=== PATIENT | female | born 1945 | race Caucasian/White ===

== ENCOUNTER → 2017-02-06 | Outpatient (CLI) | payer MEDICARE, BC ==
[~2017-02-06] MED LIST: ASPI81CH37 CHEW; ATEN100T PO; COMMODE 3-IN-11 MIS; DICL75TA PO; ENOX40P SQ; HYDR-3288 PO; HYDR12.56 PO; HYDR12.57 PO; LETR2.5T PO; LISI-515 PO; METO50TA PO; VENL75CA44 PO; VENL75TA PO; WALKER WHEELS/F1 MIS; WHEA1POW9 PO
[2017-02-06 10:26] LABS: AUTOMATED NEUTROPHIL # 5.2 TH/MM3 (1.8-7.7); BASOPHIL % 0.5 % (0.0-2.0); EOSINOPHIL # 0.3 TH/MM3 (0-0.4); EOSINOPHIL % 3.8 % (0.0-4.0); HEMATOCRIT 36.6 % (35.0-46.0); HEMO FLAGS DIFF FINAL; LYMPH % 12.1 % (9.0-44.0); LYMPHOCYTE # 0.8 TH/MM3 (1.0-4.8); MEAN CELL VOLUME 87.1 FL (80.0-100.0); MEAN CORPUSCULAR HEMOGLOBIN 27.9 PG (27.0-34.0); MEAN CORPUSCULAR HGB CONC 32.1 % (32.0-36.0); MONO % 5.4 % (0.0-8.0); NEUT % 78.2 % (16.0-70.0); PLATELET COUNT 179 TH/MM3 (150-450); RED CELL DISTRIBUTION WIDTH 13.8 % (11.6-17.2); WHITE BLOOD COUNT 6.7 TH/MM3 (4.0-11.0)
[2017-02-06 10:35] LABS: APTT (PATIENT) 25.7 SEC (24.3-30.1); PROTHROMBIN TIME - PATIENT 10.6 SEC (9.8-11.6)
[2017-02-06 10:48] LABS: ALT (GPT) 18 U/L (10-53); ANION GAP 6 MEQ/L (5-15); AST (GOT) 11 U/L (15-37); BICARBONATE 27.1 MEQ/L (21.0-32.0); CHLORIDE 105 MEQ/L (98-107); GLOMERULAR FILTRATION RATE 63 ML/MIN (>89); GLUCOSE,FASTING 150 MG/DL (74-99); SODIUM (NA) 138 MEQ/L (136-145)
[2017-02-06 10:56] LABS: ALKALINE PHOSPHATASE 89 U/L (45-117); BLOOD UREA NITROGEN 30 MG/DL (7-18); TOTAL BILIRUBIN ADULT 0.7 MG/DL (0.2-1.0)
[2017-02-06 11:06] LABS: WESTERGREN SEDIMENTATION RATE 29 mm/hr (0-30)
[2017-02-06 12:45] LABS: BLOOD, URINE NEG (NEG); COMMENT (UR) CULT NOT INDICATED; CULTURE IF INDICATED CULT NOT INDICATED; GLUCOSE,URINE NEG (NEG); KETONE, URINE NEG (NEG); NITRITE,URINE NEG (NEG); URINE COLOR LIGHT-YELLOW (YELLW/STRAW)
--- NOTE | 2017-02-06 12:58 | RADRPT ---
EXAM DATE/TIME: 02/06/2017 12:36 [facility] COMPARISON: No previous studies available for comparison. INDICATIONS : Evaluate for penumonia, pneumothorax, or communicable disease. Pre op for total hip replacement. MEDICAL HISTORY : Hypertension. Arthritis. Carcinoma, breast. Thyroid disease SURGICAL HISTORY : Mastectomy, bilateral. IVC filter placement. ENCOUNTER: Initial ACUITY: 1 day PAIN SCORE: 0/10 LOCATION: chest FINDINGS: PA and lateral views of the chest demonstrate the lungs to be symmetrically aerated without evidence of mass, infiltrate or effusion. The cardiomediastinal contours are unremarkable. Osseous structure s are intact. CONCLUSION: No acute disease. Sam Winchester MD on February 06, 2017 at 12:56 Board Certified Radiologist. This report was verified electronically.
--- NOTE | 2017-02-07 15:42 | EKG ---
Date Performed: 02/06/2017 Time Performed: 11:48:02 PTAGE: 72 years EKG: Sinus rhythm MODERATE VOLTAGE CRITERIA FOR LVH, CONSIDER NORMAL VARIANT BORDERLINE ECG NO PREVIOUS TRACING DOCTOR: Braden Arnold Interpretating Date/Time 02/07/2017 15:41:24
== END ==
LOC: CPRE 09:08
PROVIDERS: ATTEND Orthopaedic Surgery Sports Medicine
DX: Z01.812 Encounter for preprocedural laboratory examination (principal); Z01.811 Encounter for preprocedural respiratory examination; Z01.810 Encounter for preprocedural cardiovascular examination; M16.12 Unilateral primary osteoarthritis, left hip; M25.50 Pain in unspecified joint; R94.31 Abnormal electrocardiogram [ECG] [EKG]; Z96.60 Presence of unspecified orthopedic joint implant; Z79.01 Long term (current) use of anticoagulants
CPT/HCPCS: 36415; 71020; 80053; 81001; 85025; 85610; 85652; 85730; 93005

== ENCOUNTER 2017-02-23 05:31 | Inpatient (IN) | payer MEDICARE, BC ==
[~2017-02-23] VITALS: Ht 172.7 cm; Wt 97.3 kg
[~2017-02-23 05:31] MED LIST changes: -ASPI81CH37 CHEW; -COMMODE 3-IN-11 MIS; -ENOX40P SQ; -HYDR-3288 PO; -HYDR12.56 PO; -METO50TA PO; -VENL75CA44 PO; -WALKER WHEELS/F1 MIS
[2017-02-23] MEDS ORDERED: GENTAMICIN SULFATE 80 MG/2 ML VIAL ONE (06:04)
[2017-02-23] MEDS ORDERED: ACETAMINOPHEN 1000 MG/100 ML 100 ML IV ONE (06:04)
[2017-02-23] MEDS ORDERED: LISI-515 PO (06:09)
[2017-02-23] MEDS ORDERED: DICL75TA PO (06:09)
[2017-02-23] MEDS ORDERED: HYDR12.56 PO (06:09)
[2017-02-23] MEDS ORDERED: LETR2.5T PO (06:09)
[2017-02-23] MEDS ORDERED: VENL75CA44 PO (06:09)
[2017-02-23] MEDS ORDERED: METO50TA PO (06:09)
[2017-02-23] MEDS ORDERED: POVIDONE IODINE 5% (ANTISEPSIS KIT) 4 APPLICATIONS EACH NARE PRN (06:15)
[2017-02-23] MEDS ORDERED: LACTATED RINGER'S 1000 ML IV PRN (06:15)
[2017-02-23] MEDS ORDERED: POVIDONE IODINE 7.5% SCRUB 118 ML BOTTLE TOPICAL SCH (06:15)
[2017-02-23] MEDS ORDERED: DEXAMETHASONE SOD PHOS 20 MG/5 ML VIAL IV SCH (06:15)
[2017-02-23] MEDS ORDERED: ceFAZolin 2 GM PREMIX 50 ML IV SCH (06:15)
[2017-02-23] MEDS ORDERED: METOPROLOL TARTRATE 25 MG TAB PO PRN (06:15)
[2017-02-23] MEDS ORDERED: CHLORHEXIDINE GLUCONATE 4% SOLN 120 ML BTL TOPICAL SCH (06:15)
[2017-02-23] MEDS ORDERED: CHLORHEXIDINE GLUCONATE 2 % 1 PACK (2 CLOTHS) TOPICAL PRN (06:15)
[2017-02-23] MEDS ORDERED: VANCOMYCIN 1000 MG/NS 250 ML (for <70 kg) IV SCH ×2 (06:15)
[2017-02-23] MEDS ORDERED: SODIUM CHLORID 0.9% 500 ML IV PRN (06:15)
[2017-02-23] MEDS ORDERED: INSULIN HUMAN REGULAR 1,000 UNITS/10 ML VIAL SQ PRN (06:15)
[2017-02-23] MEDS ORDERED: ENOX40P SQ (06:56)
[2017-02-23] MEDS ORDERED: ASPI81CH37 CHEW (06:58)
[2017-02-23] MEDS ORDERED: HYDR-3288 PO (06:59)
[2017-02-23] MEDS ORDERED: TRANEXAMIC ACID IV SCH (07:00)
[2017-02-23] MEDS ORDERED: MORPHINE SULFATE 4 MG/ML INJ IV PUSH PRN (07:00)
[2017-02-23] MEDS ORDERED: BISACODYL 10 MG SUPP RECTAL PRN (07:00)
[2017-02-23] MEDS ORDERED: Post-op Orders (for Pharmacy) MISC XX ONE (07:00)
[2017-02-23] MEDS ORDERED: ACETAMINOPHEN/HYDROcodone 325 MG/7.5 MG TAB PO PRN (07:00)
[2017-02-23] MEDS ORDERED: ONDANSETRON HCL 4 MG/2 ML VIAL IVP PRN (07:00)
[2017-02-23] MEDS ORDERED: diphenhydrAMINE HCL 50 MG/ML VIAL IV PUSH PRN (07:00)
[2017-02-23] MEDS ORDERED: SODIUM CHLORIDE 0.9% IV SCH (07:00)
[2017-02-23] MEDS ORDERED: TRANEXAMIC PERI-ARTICULAR 3,000 MG/NS 100 ML P-ARTICULR SCH ×2 (07:00)
[2017-02-23] MEDS ORDERED: NALOXONE HCL 0.4 MG/ML AMP IV PRN (07:00)
[2017-02-23] MEDS ORDERED: SODIUM CHLORIDE 0.9% FLUSH 5 ML FLUSH IVF PRN (07:00)
[2017-02-23] MEDS ORDERED: EXPAREL PERI-ARTICULAR INJECTION (TOTAL VOL. 60 ML) P-ARTICULR SCH ×2 (07:00)
[2017-02-23] MEDS ORDERED: DO NOT ADM ANY ANTICOAGULANT DRUGS PRN (08:49)
--- NOTE | 2017-02-23 08:49 | MP ---
cc: PATTIE LANTIGUA M.D. DATE OF SURGERY 02/23/2017 PREOPERATIVE DIAGNOSIS Left hip osteoarthritis. POSTOPERATIVE DIAGNOSIS Left hip osteoarthritis. PROCEDURE Left total hip arthroplasty. SURGEON Pattie Lantigua MD EVALUATION ENGINEER Francisco J Lowry PA-C ANESTHESIA General. ESTIMATED BLOOD LOSS 300 cc. COMPLICATIONS None. IMPLANTS USED DePuy Corail size 12 Press-Fit standard offset femoral stem, size 52 cup, 36 ceramic head, +5 neck, +4-mm posterior high-wall highly cross-linked polyethylene liner. JUSTIFICATION This patient is a 72-year-old female with history of severe end-stage osteoarthritis involving the left hip. She has severe, disabling pain with standing, walking, ambulation, with weightbearing activities, and severe pain at rest. It does interfere with activities of daily living. She has failed greater than three months of nonoperative conservative treatment to include medication therapy, injections, ambulatory assistive aids, home exercise program, activity modification as well as weight loss attempts. X-rays of the left hip reveal severe end-stage osteoarthritis and ivop-ap-orym joint space narrowing, subchondral sclerosis, subchondral cysts, osteophyte formation, lateral subluxation. The patient was counseled as to the risks, benefits and alternatives to the above-named postsurgical procedure. The risks were discussed include but are not limited to anesthesia, bleeding, infection, damage to nerves, blood vessels, pain, stiffness, fracture dislocation, leg length discrepancy, blood clots, pulmonary embolism and even . The patient's pain is severe. She favored the benefits over the risks and did wish to proceed with surgery. PROCEDURE IN DETAIL Written consent was obtained. The patient was identified by name and taken to the operating room, placed supine on the operating room table. General anesthesia was administered as well as 2 grams of IV Ancef and 1 gram of IV vancomycin. The patient was carefully turned to her right lateral decubitus position. A lateral arm roll was placed. All bony prominences and pressure points were well padded. The left hip and left lower extremity were prepped and draped using isopropyl alcohol, Hibiclens solution and Chloraprep solution. After time-out was performed, a longitudinal incision was made over the posterolateral aspect of the left hip. The fascial layer was incised. The piriformis and capsule was incised, tagged with #2 FiberWire suture. A 10-blade scalpel was used to excise the labrum. An oscillating saw was used to perform a femoral neck cut. The osteophytic femoral head and neck component was removed. The remaining portions of the labrum were excised. Sequential reaming of the acetabulum began with a size 45 mm and carried through size 52. Subsequently a solid [place] 52-mm cup was implanted in press-fit manner in approximately 45 degrees of adduction and 15 degrees of anteversion. There was good purchase and fixation after insertion of the cup. A screw hole eliminator was placed, followed by the polyethylene liner. The +4-mm highly cross-linked liner was impacted in place and tested for stability. Attention was turned to the femur where a box-cutting osteotome was used to gain entrance into the intramedullary canal of the femur. This was followed by canal finder, lateralizing reamer, sequential broaching up to size 12 with a small calcar planer. Trial head and neck combinations were evaluated and the final component was implanted. With the current implants the leg could achieve full extension and external rotation without evidence of anterior instability or impingement. The hip could be flexed 90 degrees and internally rotated 70 degrees before evidence of posterior instability. Soft tissue felt appropriate and leg length appeared relatively symmetric. The surgical wound was thoroughly irrigated with sterile saline pulse lavage antibiotic impregnated solution. The piriformis along with the capsule were repaired with #2 FiberWire suture, the fascial layer was closed with #1 Vicryl suture, the subcutaneous layer with 2-0 Vicryl suture. The skin was closed with Dermabond. Sterile dressings were applied. The patient tolerated the procedure well, no intraoperative complications noted. Francisco J Lowry, physician child and youth program assistant certified, was present during the entire procedure to include patient positioning and the procedure itself. The medical necessity of a physician child and youth program assistant was indicated in this case due to the complexity of the procedure. He assisted with appropriate manipulation of the leg and also retraction of muscle, tendon and neurovascular structures. He assisted also with preparation of the bone and also implantation of the prosthetic replacement. Pattie Lantigua MD JWM/SSB /8:24 AM 8:29 AM
[2017-02-23] MEDS: METOPROLOL TARTRATE 50 MG TAB PO SCH ×2 (09:00→21:00)
[2017-02-23] MEDS: HYDROCHLOROTHIAZIDE 12.5 MG CAP PO SCH ×2 (09:00→21:00)
[2017-02-23] MEDS ORDERED: LETROZOLE PO SCH (09:00)
[2017-02-23] MEDS: SODIUM CHLOR 0.9% 1000 ML INJ 1,000 ML IV SCH ×3 (09:00→23:43)
[2017-02-23] MEDS: LISINOPRIL 20 MG TAB PO SCH ×2 (09:00→21:00)
[2017-02-23] MEDS ORDERED: *morphine SULFATE 8 MG/ML PERIprocedure ONLY ONE ×2 (09:13→09:23)
--- NOTE | 2017-02-23 09:39 | RADRPT ---
EXAM DATE/TIME: 02/23/2017 08:49 [facility] COMPARISON: CHEST PA & LAT, February 06, 2017, 12:36. INDICATIONS : Post op left total hip. MEDICAL HISTORY : Hypertension. Arthritis. Carcinoma, breast. Thyroid disease SURGICAL HISTORY : Mastectomy, bilateral. IVC filter placement. ENCOUNTER: Initial ACUITY: 1 day PAIN SCORE: 10/10 LOCATION: Left Hip FINDINGS: The patient is post left hip arthroplasty. Orthopedic hardware is in excellent position. The alignmen t is good. There degenerative changes in the right hip as well. There is an IVC filter in place. CONCLUSION: 1. Orthopedic hardware in excellent position. Josh Fraire MD on February 23, 2017 at 9:37 Board Certified Radiologist. This report was verified electronically.
[2017-02-23] MEDS: ceFAZolin 2 GM PREMIX 50 ML IV SCH ×2 (11:52→18:22)
[2017-02-23] MEDS ORDERED: PHENYLEPH/NS 1000 MCG/10 ML SYR IV ONE (12:00)
[2017-02-23] MEDS ORDERED: LACTATED RINGER'S 1000 ML INJ 1,000 ML IV ONE (12:00)
[2017-02-23] MEDS ORDERED: DEXAMETHASONE SOD PHOS 4 MG/ML VIAL IV ONE (12:00)
[2017-02-23] MEDS ORDERED: ONDANSETRON HCL 4 MG/2 ML VIAL IV PUSH ONE (12:00)
[2017-02-23] MEDS ORDERED: ROCURONIUM INJ 50 MG/5 ML SYRINGE IV PUSH ONE (12:00)
[2017-02-23] MEDS ORDERED: PROPOFOL 200 MG/20 ML AMP IV ONE (12:00)
[2017-02-23] MEDS ORDERED: GLYCOPYRROLATE 1 MG/5 ML SYRINGE IV PUSH ONE (12:00)
[2017-02-23] MEDS ORDERED: NEOSTIGMINE 3 MG/3 ML SYR IV ONE (12:00)
[2017-02-23] MEDS ORDERED: ePHEDrine/NS 25 MG/5 ML SYR IV ONE (12:00)
[2017-02-23] MEDS ORDERED: PHENYLEPHRINE HCL 10 MG/ML VIAL IV ONE (12:00)
[2017-02-23] MEDS ORDERED: LIDOCAINE HCL 1% PF 5 ML AMPULE OTHER ONE (12:00)
[2017-02-23 12:45] VITALS: BP 99/63; PULSE 82; RESP 18; TEMP 96.9; O2SAT 97
--- NOTE | 2017-02-23 13:29 | HHI.DCPOC ---
Discharge Care Plan Diagnosis: (1) Primary localized osteoarthrosis, pelvic region and thigh Your Health Problems Are: Difficulty with ADL Goals to Promote Your Health * To prevent worsening of your condition and complications * To maintain your health at the optimal level Directions to Meet Your Goals Take your medications as prescribed Follow your dietary instruction Follow activity as directed Keep your appointments as scheduled Take your immunizations and boosters as scheduled If your symptoms worsen call your PCP, if no PCP go to Urgent Care Center or Emergency Room Smoking is Dangerous to Your Health. Avoid second hand smoke Call the 24-hour hour crisis hotline for domestic abuse at Tyson Lowry Feb 23, 2017 13:29
--- NOTE | 2017-02-23 13:30 | HHI.FF ---
Face to Face Verification Diagnosis: (1) Primary localized osteoarthrosis, pelvic region and thigh Physical Therapy Gait training, Safety evaluation, Transfer training, bed to chair Hip: Total hip, Protocol: Left Left LE Weight Bearing: WB as tolerated Nursing RN: 3 days/week x 2 weeks Nursing: Chan teaching, Dressing changes Dressing Changes: Daily dressing change I have seen patient Sharon Pruitt on 02/23/17. My clinical findings support the need for the requested home health care services because: Limited ability to care for self High risk of falls I certify that my clinical findings support that this patient is homebound because: Post-op weakness Unsteady gait/balance Tyson Lowry Feb 23, 2017 13:30
[2017-02-23 16:00] VITALS: BP 78/47; PULSE 94; RESP 18; TEMP 98.8; O2SAT 95
[2017-02-23 17:45] VITALS: BP 95/53
[2017-02-23] MEDS ORDERED: ARTIFICIAL TEARS OPTH SOLN 15 ML BTL EACH EYE PRN (18:00)
[2017-02-23] MEDS ORDERED: SODIUM CHLORID 0.9% 500 ML INJ 500 ML IV SCH (18:15)
--- NOTE | 2017-02-23 18:21 | PD.CONS ---
HPI Service [facility] Hospitalists Consult Requested By Dr. Jurado Reason for Consult Medical management Primary Care Physician Nguyễn Nunes M.D. Diagnoses: History of Present Illness 72 yr old female admitted under the orthopedic sx services s/p Left hip arthroplasty pod #0. Pt tells me that she had been having left hip pain for years and tried conservative management w not much improvement. She opted for surgical management and was scheduled for today. Currently her pain is well controlled. she tells me that after sx she was able to sit on recliner however she felt somewhat lightheaded and dizzy and now is laying in bed asymptomatic. RN at bedside tells me that pt's BPs after sx are running low. Currently pt denies any CP/SOB/N/V and denies to me any lightheadedness or dizziness during my interview. Hospitalist service has been consulted for medical management. Review of Systems Except as stated in HPI: all other systems reviewed are Neg Past Family Social History Allergies: Coded Allergies: Sulfa (Sulfonamide Antibiotics) (Verified Allergy, Severe, Rash, 02/06/17) celecoxib (Verified Allergy, Severe, Rash, 02/06/17) codeine (Verified Allergy, Severe, 02/06/17) diarrhea fluoxetine (Verified Allergy, Severe, hallucinations, 02/23/17) losartan (Verified Allergy, Severe, Rash, 02/06/17) nifedipine (Verified Allergy, Severe, rash, 02/23/17) sulfamethoxazole (Verified Allergy, Severe, rash, 02/23/17) trimethoprim (Verified Allergy, Severe, rash, 02/23/17) hydrochlorothiazide (Verified Adverse Reaction, Mild, pt takes hctz she is not allergic, 02/23/17) not allergic takes daily Past Medical History breast cancer HTN hyperlipidemia-diet controlled hx of hyperthyroidism and hyperparathyroidism for which she is closely being monitor and not on meds Hx of DVT, no longer on anticoagulation, has IVC filter in Past Surgical History bilateral mastectomies left total hip sx feet sx IVC filter placement Active Ordered Medications Reported Meds & Active Scripts Active [place] (Hydrocodone-Acetaminophen) 7.5-325 mg Tab 1-2 Tab PO Q6H PRN Aspirin Low Dose (Aspirin) 81 Mg Chew 81 Mg CHEW BID 30 Days Lovenox Inj (Enoxaparin Sodium) 40 Mg/0.4 Ml Syr 40 Mg SQ DAILY Reported Diclofenac Sodium DR (Diclofenac Sodium) 75 Mg Tabdr 75 Mg PO BID Venlafaxine ER 24 HR (Venlafaxine HCl) 75 Mg Cap 75 Mg PO BID Lisinopril 20 Mg Tab 20 Mg PO BID Hydrochlorothiazide 12.5 Mg Tab 12.5 Mg PO DAILY Letrozole 2.5 Mg Tab 1 Tab PO DAILY Metoprolol Tartrate 50 Mg Tab 50 Mg PO BID Diclofenac Sodium DR (Diclofenac Sodium) 75 Mg Tabdr 75 Mg PO BID Benefiber (Wheat Dextrin) 3 Gram/3.8 Gram Powder 1 Packet PO DAILY Effexor (Venlafaxine HCl) 75 Mg Tab 75 Mg PO Q12H Hydrochlorothiazide 12.5 Mg Cap 12.5 Mg PO BID Lisinopril 20 Mg Tab 20 Mg PO BID Letrozole 2.5 Mg Tab 1 Tab PO DAILY Family History pt was adopted and doesn't know her family hx Social History denies any smoking hx, drinks alcohol occasionally, denies any illegal drug use Physical Exam Vital Signs Vital Signs Date Time Temp Pulse Resp B/P (MAP) Pulse Ox O2 Delivery O2 Flow Rate FiO2 02/23/17 17:45 95/53 (67) 02/23/17 16:00 98.8 94 18 78/47 (57) 95 02/23/17 12:45 96.9 82 18 99/63 (75) 97 02/23/17 12:00 96.5 91 20 117/58 (77) 98 Room Air 02/23/17 11:10 Room Air 02/23/17 11:00 71 17 112/56 (74) 98 Nasal Cannula 2 02/23/17 10:00 68 20 126/60 (82) 96 Nasal Cannula 2 02/23/17 09:45 68 19 117/56 (76) 96 Nasal Cannula 2 02/23/17 09:30 67 21 122/59 (80) 98 Nasal Cannula 2 02/23/17 09:15 71 21 136/65 (88) 97 Nasal Cannula 2 02/23/17 09:00 73 23 129/60 (83) 97 Nasal Cannula 2 02/23/17 08:47 98.0 78 24 136/63 (87) 99 Nasal Cannula 2 02/23/17 06:13 99.5 80 24 142/86 (104) 97 Physical Exam GENERAL: This is a well-nourished, well-developed patient, in no apparent distress. SKIN: dressing over left hip, d/c/i HEAD: Atraumatic. Normocephalic. No temporal or scalp tenderness. EYES: Pupils equal round and reactive. Extraocular motions intact. ENT: Nose without drainage. Throat without erythema, tonsillar hypertrophy or exudate. Uvula midline. Airway patent. NECK: Trachea midline. CARDIOVASCULAR: Regular rate and rhythm without murmurs RESPIRATORY: Clear to auscultation. Breath sounds equal bilaterally. No wheezes GASTROINTESTINAL: Abdomen soft, non-tender, nondistended. No guarding. MUSCULOSKELETAL: Extremities without edema. able to wiggle her feet, sensation intact, cap refill <2sec. pedal pulses present NEUROLOGICAL: Awake and alert. Cranial nerves II through XII intact. Normal speech. Imaging Last Impressions Hip and Pelvis X-Ray 02/23/17 0654 Signed Impressions: Service Date/Time: Thursday, February 23, 2017 08:49 - CONCLUSION: 1. Orthopedic hardware in excellent position. Josh Fraire MD Assessment and Plan Assessment and Plan Left hip arthroplasty: POD0. pain management, anticoagulation, abx, rehab per ortho sx. Colace and dulcolax for bowel regimen. Hypotension: currently mildly hypotensive but asymptomatic now. Will give 500ml IV bolus x 1 and monitor closely. May need to increase IVF rate but will hold off and see if she responds to bolus. Put BP parameters on her current home regimen. PT has been cautioned to avoid getting/sitting up too quickly as she may become symptomatic. breast cancer- on home regime. HTN- see above hyperlipidemia-diet controlled hx of hyperthyroidism and hyperparathyroidism for which she is closely being monitor and not on meds. stable Hx of DVT, no longer on anticoagulation, has IVC filter DVT proph: lovenox per ortho Thank you for allowing me to take care of Mrs. Pruitt. I will continue to follow along with you. Code Status full Discussed Condition With patient. Gricelda Rosenberg MD Feb 23, 2017 18:21
[2017-02-23 20:00] VITALS: BP 81/42; PULSE 86; RESP 17; TEMP 99.1; O2SAT 96
[2017-02-23] MEDS: SODIUM CHLORIDE 0.9% FLUSH 5 ML FLUSH IVF SCH (21:00)
[2017-02-23] MEDS ORDERED: ZOLPIDEM TARTRATE 5 MG TAB PO PRN (21:00)
[2017-02-24] VITALS (11 sets, daily range): BP systolic 86–130; BP diastolic 41–65; PULSE 90–110; RESP 16–18; TEMP 98–100.3; O2SAT 92–96
[2017-02-24] MEDS: SODIUM CHLOR 0.9% 1000 ML INJ 1,000 ML IV SCH ×3 (01:02→20:38)
[2017-02-24] MEDS: ceFAZolin 2 GM PREMIX 50 ML IV SCH (01:02)
[2017-02-24] MEDS: MAGNESIUM HYDROXIDE SUSP 30 ML CUP PO PRN ×2 (06:09→20:37)
[2017-02-24] MEDS: ACETAMINOPHEN/HYDROcodone 325 MG/7.5 MG TAB PO PRN (06:19)
[2017-02-24 07:17] LABS: HEMATOCRIT 26.5 % (35.0-46.0); MEAN CELL VOLUME 87.7 FL (80.0-100.0); MEAN CORPUSCULAR HEMOGLOBIN 29.3 PG (27.0-34.0); MEAN CORPUSCULAR HGB CONC 33.4 % (32.0-36.0); PLATELET COUNT 119 TH/MM3 (150-450); RED BLOOD COUNT 3.02 MIL/MM3 (4.00-5.30); REVIEW FLAG FINAL; WHITE BLOOD COUNT 9.6 TH/MM3 (4.0-11.0)
--- NOTE | 2017-02-24 08:05 | PD.ORT.PN ---
Subjective Post Op Day #: 1 Subjective Remarks pain under control. Objective Vitals Vital Signs Date Time Temp Pulse Resp B/P (MAP) Pulse Ox O2 Delivery O2 Flow Rate FiO2 02/24/17 04:00 99.3 97 17 98/41 (60) 96 02/24/17 03:48 92 Nasal Cannula 3.00 02/24/17 00:00 98.0 90 18 113/62 (79) 93 02/23/17 20:00 99.1 86 17 81/42 (55) 96 02/23/17 17:45 95/53 (67) 02/23/17 16:00 98.8 94 18 78/47 (57) 95 02/23/17 12:45 96.9 82 18 99/63 (75) 97 02/23/17 12:00 96.5 91 20 117/58 (77) 98 Room Air 02/23/17 11:10 Room Air 02/23/17 11:00 71 17 112/56 (74) 98 Nasal Cannula 2 02/23/17 10:00 68 20 126/60 (82) 96 Nasal Cannula 2 02/23/17 09:45 68 19 117/56 (76) 96 Nasal Cannula 2 02/23/17 09:30 67 21 122/59 (80) 98 Nasal Cannula 2 02/23/17 09:15 71 21 136/65 (88) 97 Nasal Cannula 2 02/23/17 09:00 73 23 129/60 (83) 97 Nasal Cannula 2 02/23/17 08:47 98.0 78 24 136/63 (87) 99 Nasal Cannula 2 I/O 02/23/17 02/23/17 02/23/17 02/24/17 02/24/17 02/24/17 07:00 15:00 23:00 07:00 15:00 23:00 Intake Total 50 ml 1638 ml 1422 ml Output Total 4575 ml 250 ml 800 ml Balance 50 ml -2937 ml -250 ml 622 ml Intake Oral 320 ml 240 ml IV Total 50 ml 1318 ml 1182 ml Output Urine Total 975 ml 250 ml 800 ml Estimated Blood Loss 600 ml Other 3000 ml # Bowel Movements 0 0 Result Diagram: 02/24/17 0607 Objective Remarks in bed, nad dressing c/d/i neg homans nvi Assessment & Plan Ortho Post Op Day #: 1 Problem List: Assessment and Plan s/p L YANELIS - posterior approach wbat - posterior hip precautions daily dressing changes john d/c planning to [facility] [id number] signed rx in chart f/up dr. fenton 2 weeks Tyson Lowry Feb 24, 2017 08:04
[2017-02-24] MEDS ORDERED: COMMODE 3-IN-11 MIS (08:07)
[2017-02-24] MEDS ORDERED: WALKER WHEELS/F1 MIS (08:07)
[2017-02-24] MEDS: VENLAFAXINE HCL XR 75 MG CAP PO SCH (08:34)
[2017-02-24] MEDS: ENOXAPARIN SODIUM 40 MG/0.4 ML SYRINGE SQ SCH (08:35)
[2017-02-24] MEDS: SODIUM CHLORIDE 0.9% FLUSH 5 ML FLUSH IVF SCH ×2 (08:40→20:38)
[2017-02-24] MEDS: METOPROLOL TARTRATE 50 MG TAB PO SCH (09:00)
[2017-02-24] MEDS: HYDROCHLOROTHIAZIDE 12.5 MG CAP PO SCH (09:00)
[2017-02-24] MEDS: LISINOPRIL 20 MG TAB PO SCH (09:00)
[2017-02-24] MEDS ORDERED: [UNRECOGNIZED DRUG - OTHER] EACH EYE PRN (13:30)
--- NOTE | 2017-02-24 16:00 | HHI.PR ---
Subjective Remarks Written by Delilah Lord, acting as scribe for Dr. Rosenberg on 02/24/17 at 15:39. Follow up left hip arthroplasty. Patient seen and examined, lying in bed comfortably in no apparent distress. Denies any new acute complaints overnight. Tolerating PO intake. Denies any chills, cough, shortness of breath, chest pain , adb pain, n/v/d or dysuria. TMAX 100.0 BP labile today. Objective Vitals Vital Signs Date Time Temp Pulse Resp B/P (MAP) Pulse Ox O2 Delivery O2 Flow Rate FiO2 02/24/17 14:20 107/61 (76) 02/24/17 12:00 100.0 110 18 86/51 (63) 93 02/24/17 08:51 96 Nasal Cannula 3.00 02/24/17 08:00 99.9 101 18 130/61 (84) 94 02/24/17 07:19 16 02/24/17 04:00 99.3 97 17 98/41 (60) 96 02/24/17 03:48 92 Nasal Cannula 3.00 02/24/17 00:00 98.0 90 18 113/62 (79) 93 02/23/17 20:00 99.1 86 17 81/42 (55) 96 02/23/17 17:45 95/53 (67) 02/23/17 16:00 98.8 94 18 78/47 (57) 95 I/O 02/23/17 02/23/17 02/23/17 02/24/17 02/24/17 02/24/17 07:00 15:00 23:00 07:00 15:00 23:00 Intake Total 50 ml 1638 ml 1422 ml Output Total 4575 ml 250 ml 800 ml Balance 50 ml -2937 ml -250 ml 622 ml Intake Oral 320 ml 240 ml IV Total 50 ml 1318 ml 1182 ml Output Urine Total 975 ml 250 ml 800 ml Estimated Blood Loss 600 ml Other 3000 ml # Bowel Movements 0 0 Result Diagram: 02/24/17 0607 Imaging Last Impressions Hip and Pelvis X-Ray 02/23/17 0654 Signed Impressions: Service Date/Time: Thursday, February 23, 2017 08:49 - CONCLUSION: 1. Orthopedic hardware in excellent position. Josh Fraire MD Objective Remarks GENERAL: This is a well-nourished, well-developed patient, in no apparent distress. SKIN: dressing over left hip, d/c/i. Minimal bruising around edges. EYES: Extraocular motions intact. ENT: Nose without drainage.Airway patent. NECK: Trachea midline. CARDIOVASCULAR: Regular rate and rhythm without murmurs RESPIRATORY: Clear to auscultation. Breath sounds equal bilaterally. No wheezes GASTROINTESTINAL: Abdomen soft, non-tender, nondistended. No guarding. MUSCULOSKELETAL: Extremities without edema. able to wiggle her feet, sensation intact, cap refill <2sec. pedal pulses present NEUROLOGICAL: Awake and alert. Cranial nerves II through XII intact. Normal speech. A/P Assessment and Plan Mrs. Pruitt is a 72-year-old female patient with left hip pain for years and tried conservative management w not much improvement. She opted for surgical management Left hip arthroplasty: POD1. pain management, anticoagulation, abx, rehab per ortho sx. Colace and Dulcolax for bowel regimen. TMAX 100.0 today. Monitor fevers.Encourage use of IS q1hr while awake to prevent post op fevers due to atelectasis. Hb down to 8.8 post op, monitor. Hypertensive history but currently hypotensive: Currently mildly hypotensive but asymptomatic now, 85/63. Will order 1 L NS bolus x 1 now. Status post 500 ml bolus yesterday. hold BP meds but resume as needed home regimen. PT has been cautioned to avoid getting/sitting up too quickly as she may become symptomatic. Breast cancer: Continue home regimen. Hyperlipidemia: Diet controlled Hx of hyperthyroidism and hyperparathyroidism for which she is closely being monitor and not on meds. stable Depression: Continue home Effexor. Hx of DVT, no longer on anticoagulation, has IVC filter DVT proph: Lovenox per ortho This note was transcribed by elier Lord. I, Dr. Gricelda Rosenberg personally performed the history, physical exam, and medical decision making; and confirmed the accuracy of the information in the transcribed note. Authenticated by Dr. Gricelda Rosenberg on 02/24/17 at 1537. Delilah Lord Feb 24, 2017 16:00 Gricelda Rosenberg MD Feb 24, 2017 16:37
[2017-02-24] MEDS ORDERED: SODIUM CHLOR 0.9% 1000 ML INJ 1,000 ML IV ONE (16:15)
[2017-02-24] MEDS: DOCUSATE SODIUM 100 MG CAP PO SCH (20:37)
[2017-02-24] MEDS: MULTIVITAMINS/MINERALS THERAPEUTIC TAB PO SCH (20:37)
[2017-02-25] VITALS: BP 105/60; PULSE 107; RESP 15; TEMP 100.6; O2SAT 95
[2017-02-25 04:00] VITALS: BP 129/67; PULSE 101; RESP 14; TEMP 98.6; O2SAT 96
[2017-02-25 05:59] LABS: HEMATOCRIT 28.1 % (35.0-46.0); MEAN CELL VOLUME 88.4 FL (80.0-100.0); MEAN CORPUSCULAR HEMOGLOBIN 29.3 PG (27.0-34.0); MEAN CORPUSCULAR HGB CONC 33.2 % (32.0-36.0); PLATELET COUNT 128 TH/MM3 (150-450); RED BLOOD COUNT 3.18 MIL/MM3 (4.00-5.30); REVIEW FLAG FINAL
[2017-02-25 08:00] VITALS: BP 103/49; PULSE 106; RESP 18; TEMP 97.6; O2SAT 98
--- NOTE | 2017-02-25 08:00 | PD.ORT.PN ---
Subjective Post Op Day #: 2 Subjective Remarks pain under control. feeling much better today. Objective Vitals Vital Signs Date Time Temp Pulse Resp B/P (MAP) Pulse Ox O2 Delivery O2 Flow Rate FiO2 02/25/17 04:00 98.6 101 14 129/67 (87) 96 02/25/17 00:00 100.6 107 15 105/60 (75) 95 02/24/17 20:35 95 Nasal Cannula 2.00 02/24/17 20:22 93 Nasal Cannula 3.00 02/24/17 19:00 100.3 108 16 107/65 (79) 95 02/24/17 18:45 121/58 (79) 02/24/17 16:00 100.3 97 18 128/64 (85) 93 02/24/17 14:20 107/61 (76) 02/24/17 12:00 100.0 110 18 86/51 (63) 93 02/24/17 08:51 96 Nasal Cannula 3.00 02/24/17 08:00 99.9 101 18 130/61 (84) 94 I/O 02/24/17 02/24/17 02/24/17 02/25/17 02/25/17 02/25/17 07:00 15:00 23:00 07:00 15:00 23:00 Intake Total 1422 ml 600 ml 480 ml 480 ml Output Total 800 ml 850 ml Balance 622 ml 600 ml -370 ml 480 ml Intake Oral 240 ml 600 ml 480 ml 480 ml IV Total 1182 ml Output Urine Total 800 ml 850 ml # Voids 0 0 2 # Bowel Movements 0 0 0 0 Result Diagram: 02/25/17 0536 Objective Remarks on chair, nad dressing c/d/i neg homans nvi Assessment & Plan Ortho Post Op Day #: 2 Problem List: Assessment and Plan s/p L YANELIS - posterior approach wbat - posterior hip precautions daily dressing changes lovenox OOB and IS d/c planning to [facility] [id number] signed rx in chart f/up dr. fenton 2 weeks Tyson Lowry Feb 25, 2017 08:00
[2017-02-25] MEDS: SODIUM CHLORIDE 0.9% FLUSH 5 ML FLUSH IVF SCH ×2 (09:00→21:58)
[2017-02-25] MEDS: MULTIVITAMINS/MINERALS THERAPEUTIC TAB PO SCH ×2 (09:00→21:58)
[2017-02-25] MEDS: VENLAFAXINE HCL XR 75 MG CAP PO SCH (09:49)
[2017-02-25] MEDS: DOCUSATE SODIUM 100 MG CAP PO SCH ×2 (09:49→21:57)
[2017-02-25] MEDS: ENOXAPARIN SODIUM 40 MG/0.4 ML SYRINGE SQ SCH (09:50)
[2017-02-25] MEDS: LETROZOLE 2.5 MG PO SCH (09:50)
[2017-02-25] MEDS: ACETAMINOPHEN/HYDROcodone 325 MG/7.5 MG TAB PO PRN (11:07)
[2017-02-25 12:00] VITALS: BP 141/72; PULSE 109; RESP 18; TEMP 97.9; O2SAT 97
--- NOTE | 2017-02-25 13:06 | HHI.PR ---
Subjective Remarks pain controlled denies cp, sob stable vital signs no diarrhea good appetite Objective Vitals Vital Signs Date Time Temp Pulse Resp B/P (MAP) Pulse Ox O2 Delivery O2 Flow Rate FiO2 02/25/17 08:00 97.6 106 18 103/49 (67) 98 02/25/17 07:00 Room Air 02/25/17 04:00 98.6 101 14 129/67 (87) 96 02/25/17 00:00 100.6 107 15 105/60 (75) 95 02/24/17 20:35 95 Nasal Cannula 2.00 02/24/17 20:22 93 Nasal Cannula 3.00 02/24/17 19:00 100.3 108 16 107/65 (79) 95 02/24/17 18:45 121/58 (79) 02/24/17 16:00 100.3 97 18 128/64 (85) 93 02/24/17 14:20 107/61 (76) I/O 02/24/17 02/24/17 02/24/17 02/25/17 02/25/17 02/25/17 07:00 15:00 23:00 07:00 15:00 23:00 Intake Total 1422 ml 600 ml 480 ml 480 ml Output Total 800 ml 850 ml Balance 622 ml 600 ml -370 ml 480 ml Intake Oral 240 ml 600 ml 480 ml 480 ml IV Total 1182 ml Output Urine Total 800 ml 850 ml # Voids 0 0 2 2 # Bowel Movements 0 0 0 0 1 Result Diagram: 02/25/17 0536 Imaging Last Impressions Hip and Pelvis X-Ray 02/23/17 0654 Signed Impressions: Service Date/Time: Thursday, February 23, 2017 08:49 - CONCLUSION: 1. Orthopedic hardware in excellent position. Josh Fraire MD Objective Remarks GENERAL: This is a well-nourished, well-developed patient, in no apparent distress. SKIN: dressing over left hip, d/c/i. Minimal bruising around edges. EYES: Extraocular motions intact. ENT: Nose without drainage.Airway patent. NECK: Trachea midline. CARDIOVASCULAR: Regular rate and rhythm without murmurs RESPIRATORY: Clear to auscultation. Breath sounds equal bilaterally. No wheezes GASTROINTESTINAL: Abdomen soft, non-tender, nondistended. No guarding. MUSCULOSKELETAL: Extremities without edema. able to wiggle her feet, sensation intact, cap refill <2sec. pedal pulses present NEUROLOGICAL: Awake and alert. Cranial nerves II through XII intact. Normal speech. Procedures Left total hip arthroplasty. Medications and IVs Current Medications Medications (Trade) Dose Ordered Sig/Michael Route Start Time Stop Time Status Last Admin Lactated Ringer's 1,000 ml @ 30 mls/hr Q24H PRN IV 02/23/17 06:15 02/26/17 06:14 02/23/17 06:15 Sodium Chloride 500 ml @ 30 mls/hr [id number] PRN IV 02/23/17 06:15 02/26/17 06:14 (Lopressor) 25 mg WINDOWS SERVER ADMINISTRATOR PRN PO 02/23/17 06:15 02/26/17 06:14 (Betadine 5% Antisepsis Kit) 1 applic WINDOWS SERVER ADMINISTRATOR PRN EACH NARE 02/23/17 06:15 02/26/17 06:14 02/23/17 06:25 (Chlorhexidine 2% Cloth) 3 pack WINDOWS SERVER ADMINISTRATOR PRN TOPICAL 02/23/17 06:15 02/26/17 06:14 02/23/17 05:45 (NovoLIN R INJ) See Protocol Table ... WINDOWS SERVER ADMINISTRATOR PRN SQ 02/23/17 06:15 02/26/17 06:14 (Betadine 7.5% Scrub) 1 applic ONCE TOPICAL 02/23/17 06:15 02/26/17 06:14 (Hibiclens 4% Top Soln) 1 applic ONCE TOPICAL 02/23/17 06:15 02/26/17 06:14 02/23/17 06:00 (Microzide) 12.5 mg BID PO 02/23/17 09:00 Future Hold (Prinivil) 20 mg BID PO 02/23/17 09:00 Future Hold (Lopressor) 50 mg BID PO 02/23/17 09:00 Future Hold (Effexor Xr) 75 mg DAILY PO 02/23/17 09:00 02/25/17 09:49 (NS Flush) 2 ml UNSCH PRN IVF 02/23/17 07:00 (NS Flush) 2 ml BID IVF 02/23/17 09:00 02/25/17 09:00 (Lovenox Inj) 40 mg Q24H SQ 02/24/17 08:00 03/05/17 08:01 02/25/17 09:50 (Morphine Inj) 3 mg Q3H PRN IV PUSH 02/23/17 07:00 ([place] 7.5-325 Mg) 1 tab Q4H PRN PO 02/23/17 07:00 02/25/17 11:07 ([place] 7.5-325 Mg) 2 tab Q4H PRN PO 02/23/17 07:00 (Theragran M Tab) 1 tab BID PO 02/24/17 21:00 04/25/17 20:59 02/24/17 20:37 (Zofran Inj) 4 mg Q6H PRN IVP 02/23/17 07:00 02/24/17 01:11 (Colace) 100 mg BID PO 02/24/17 21:00 02/25/17 09:49 (Ambien) 5 mg HS PRN PO 02/23/17 21:00 (Dulcolax Supp) 10 mg DAILY PRN RECTAL 02/23/17 07:00 02/25/17 06:09 (Narcan Inj) 0.4 mg UNSCH PRN IV 02/23/17 07:00 (Benadryl Inj) 25 mg Q6H PRN IV PUSH 02/23/17 07:00 (Tears Naturale Opth Soln) 1 drop Q4H PRN EACH EYE 02/23/17 18:00 (Milk Of Magnesia Liq) 30 ml BID PRN PO 02/24/17 01:15 02/24/17 20:37 Sodium Chloride 1,000 ml @ 75 mls/hr [id number] IV 02/24/17 15:00 Patient Own Medication 1 ea Q4HR PRN EACH EYE 02/24/17 13:30 Future hold Patient Own Medication PT OWN MED: LETROZOLE 2.5MG(ACC... DAILY PO 02/25/17 09:00 02/25/17 09:50 Urinary Catheter: No Vascular Central Line Catheter: No A/P Problem List: (1) Primary localized osteoarthrosis, pelvic region and thigh ICD Code: M16.10 - Unilateral primary osteoarthritis, unspecified hip Assessment and Plan Mrs. Pruitt is a 72-year-old female patient with left hip pain for years and tried conservative management w not much improvement. She opted for surgical management Left hip arthroplasty: POD1. pain management, anticoagulation, abx, rehab per ortho sx. Colace and Dulcolax for bowel regimen. TMAX 100.0 on 02/24 . Monitor fevers.Encourage use of IS q1hr while awake to prevent post op fevers due to atelectasis. Hb down to 8.8 post op, monitor. 02/25 Patient with low grade temp of 100.6 last night which has resolved. Patient looks non toxic. No cough or urinary complaints. Continue IS. Hypertensive history but currently hypotensive: Currently mildly hypotensive but asymptomatic now, 85/63. Will order 1 L NS bolus x 1 now. Status post 500 ml bolus yesterday. hold BP meds but resume as needed home regimen. PT has been cautioned to avoid getting/sitting up too quickly as she may become symptomatic. 02/25 Hypotension resolved after IV fluid bolus administration. Breast cancer: Continue home regimen. Hyperlipidemia: Diet controlled Hx of hyperthyroidism and hyperparathyroidism for which she is closely being monitor and not on meds. stable Depression: Continue home Effexor. Hx of DVT, no longer on anticoagulation, has IVC filter DVT proph: Lovenox per Hi Pacheco MD Feb 25, 2017 13:06
[2017-02-25 16:00] VITALS: BP 132/66; PULSE 107; RESP 18; TEMP 96.6; O2SAT 16
[2017-02-25] MEDS: SODIUM CHLOR 0.9% 1000 ML INJ 1,000 ML IV SCH (17:40)
[2017-02-25 21:16] VITALS: BP 118/66; PULSE 106; RESP 22; TEMP 100.2; O2SAT 94
[2017-02-26 00:45] VITALS: BP 146/75; PULSE 103; RESP 20; TEMP 99.6; O2SAT 93
[2017-02-26 06:11] VITALS: BP 129/69; PULSE 104; RESP 21; TEMP 97.7; O2SAT 96
[2017-02-26] MEDS: SODIUM CHLOR 0.9% 1000 ML INJ 1,000 ML IV SCH (07:00)
[2017-02-26 07:55] LABS: HEMATOCRIT 25.9 % (35.0-46.0); MEAN CELL VOLUME 87.7 FL (80.0-100.0); MEAN CORPUSCULAR HGB CONC 33.1 % (32.0-36.0); PLATELET COUNT 104 TH/MM3 (150-450); RED BLOOD COUNT 2.95 MIL/MM3 (4.00-5.30); RED CELL DISTRIBUTION WIDTH 13.9 % (11.6-17.2); REVIEW FLAG FINAL; WHITE BLOOD COUNT 7.8 TH/MM3 (4.0-11.0)
[2017-02-26 08:00] VITALS: BP_SYST 151; PULSE 111; RESP 18; TEMP 99.5; O2SAT 97
--- NOTE | 2017-02-26 08:03 | PD.ORT.PN ---
Subjective Post Op Day #: 3 Subjective Remarks doing ok. everyday feeling a little better. Objective Vitals Vital Signs Date Time Temp Pulse Resp B/P (MAP) Pulse Ox O2 Delivery O2 Flow Rate FiO2 02/26/17 06:11 97.7 104 21 129/69 (89) 96 02/26/17 00:45 99.6 103 20 146/75 (98) 93 02/25/17 21:16 100.2 106 22 118/66 (83) 94 02/25/17 16:00 96.6 107 18 132/66 (88) 16 02/25/17 12:00 97.9 109 18 141/72 (95) 97 I/O 02/25/17 02/25/17 02/25/17 02/26/17 02/26/17 02/26/17 07:00 15:00 23:00 07:00 15:00 23:00 Intake Total 480 ml 600 ml Balance 480 ml 600 ml Intake Oral 480 ml 600 ml # Voids 2 2 1 3 # Bowel Movements 0 1 Result Diagram: 02/26/17 0620 Objective Remarks on chair, nad dressing c/d/i neg homans nvi Assessment & Plan Ortho Post Op Day #: 3 Problem List: Assessment and Plan s/p L YANELIS - posterior approach wbat - posterior hip precautions daily dressing changes lovenox OOB and IS d/c planning to snf - cleared today [id number] signed rx in chart f/up dr. fenton 2 weeks Tyson Lowry Feb 26, 2017 08:03
[2017-02-26] MEDS: DOCUSATE SODIUM 100 MG CAP PO SCH (08:50)
[2017-02-26] MEDS: MULTIVITAMINS/MINERALS THERAPEUTIC TAB PO SCH (08:51)
[2017-02-26] MEDS: VENLAFAXINE HCL XR 75 MG CAP PO SCH (08:51)
[2017-02-26] MEDS: SODIUM CHLORIDE 0.9% FLUSH 5 ML FLUSH IVF SCH (08:52)
[2017-02-26] MEDS: ENOXAPARIN SODIUM 40 MG/0.4 ML SYRINGE SQ SCH (08:52)
[2017-02-26] MEDS: LETROZOLE 2.5 MG PO SCH (08:53)
[2017-02-26] MEDS: ACETAMINOPHEN/HYDROcodone 325 MG/7.5 MG TAB PO PRN ×2 (09:03→16:01)
[2017-02-26 12:00] VITALS: BP 113/60; PULSE 101; RESP 16; TEMP 97.7; O2SAT 94
--- NOTE | 2017-02-26 14:14 | HHI.PR ---
Subjective Remarks Patient denies fevers/chills denies dysuria denies diarrhea denies cough had Tmax of 100.2 Objective Vitals Vital Signs Date Time Temp Pulse Resp B/P (MAP) Pulse Ox O2 Delivery O2 Flow Rate FiO2 02/26/17 12:00 97.7 101 16 113/60 (77) 94 02/26/17 08:00 99.5 111 18 151/ 97 02/26/17 06:11 97.7 104 21 129/69 (89) 96 02/26/17 00:45 99.6 103 20 146/75 (98) 93 02/25/17 21:16 100.2 106 22 118/66 (83) 94 02/25/17 16:00 96.6 107 18 132/66 (88) 16 I/O 02/25/17 02/25/17 02/25/17 02/26/17 02/26/17 02/26/17 06:59 14:59 22:59 06:59 14:59 22:59 Intake Total 480 ml 600 ml Balance 480 ml 600 ml Intake Oral 480 ml 600 ml # Voids 2 2 1 3 # Bowel Movements 0 1 Result Diagram: 02/26/17 0620 Objective Remarks GENERAL: This is a well-nourished, well-developed patient, in no apparent distress. SKIN: dressing over left hip, d/c/i. Minimal bruising around edges. EYES: Extraocular motions intact. ENT: Nose without drainage.Airway patent. NECK: Trachea midline. CARDIOVASCULAR: Regular rate and rhythm without murmurs RESPIRATORY: Clear to auscultation. Breath sounds equal bilaterally. No wheezes GASTROINTESTINAL: Abdomen soft, non-tender, nondistended. No guarding. MUSCULOSKELETAL: Extremities without edema. able to wiggle her feet, sensation intact, cap refill <2sec. pedal pulses present NEUROLOGICAL: Awake and alert. Cranial nerves II through XII intact. Normal speech. Procedures Left total hip arthroplasty. A/P Problem List: (1) Primary localized osteoarthrosis, pelvic region and thigh ICD Code: M16.10 - Unilateral primary osteoarthritis, unspecified hip Assessment and Plan Mrs. Pruitt is a 72-year-old female patient with left hip pain for years and tried conservative management w not much improvement. She opted for surgical management Left hip arthroplasty: POD1. pain management, anticoagulation, abx, rehab per ortho sx. Colace and Dulcolax for bowel regimen. TMAX 100.0 on 02/24 . Monitor fevers.Encourage use of IS q1hr while awake to prevent post op fevers due to atelectasis. Hb down to 8.8 post op, monitor. 02/25 Patient with low grade temp of 100.6 last night which has resolved. Patient looks non toxic. No cough or urinary complaints. Continue IS. 02/26 Will check urinalysis. Patient has been discharged by primary, urinalysis can be followed up on SNF. Patient is non toxic and does not have any signs of infection. This was discussed with patient and family at bedside. Continue IS to prevent atelectasis. Hypertensive history but currently hypotensive: Currently mildly hypotensive but asymptomatic now, 85/63. Will order 1 L NS bolus x 1 now. Status post 500 ml bolus yesterday. hold BP meds but resume as needed home regimen. PT has been cautioned to avoid getting/sitting up too quickly as she may become symptomatic. 02/25 Hypotension resolved after IV fluid bolus administration. Breast cancer: Continue home regimen. Hyperlipidemia: Diet controlled Hx of hyperthyroidism and hyperparathyroidism for which she is closely being monitor and not on meds. stable Depression: Continue home Effexor. Hx of DVT, no longer on anticoagulation, has IVC filter DVT proph: Lovenox per Hi Pacheco MD Feb 26, 2017 14:14
[2017-02-26 17:16] LABS: BLOOD, URINE NEG (NEG); COMMENT (UR) CULT NOT INDICATED; CULTURE IF INDICATED CULT NOT INDICATED; GLUCOSE,URINE 1000 mg/dL (NEG); HYALINE CAST, URINE 3 /lpf (RARE); KETONE, URINE NEG (NEG); MUCUS URINE FEW /lpf (OCC); NITRITE,URINE NEG (NEG); PH, URINE 6.5 (5.0-8.5); URINE COLOR YELLOW (YELLW/STRAW)
--- NOTE | 2017-02-27 08:24 | MD ---
cc: PATTIE LANTIGUA M.D. ADMISSION DATE: 02/23/2017 DISCHARGE DATE: 02/26/2017 ADMISSION DIAGNOSIS Severe degenerative osteoarthritis left hip. DISCHARGE DIAGNOSIS Severe degenerative osteoarthritis left hip. HISTORY OF PRESENT ILLNESS Ms. Pruitt is a 72-year-old female who presented to the [facility] for evaluation by Dr. Pattie Lantigua regarding her progressive left hip pain. The patient states her pain is currently inhibiting her activities of daily living and her ability to ambulate without risk of fall. She states the pain has been progressive for greater than one year duration. She has no alleviating factors at this point in time although in the past she has tried medications, assistive devices, physical therapy, home exercise program without relief of symptoms. She does have x-ray evidence of severe degenerative osteoarthritis of the left hip. While in the office the patient was counseled on her diagnosis and treatment options. The risks, benefits and indications all were discussed in great detail. The patient did elect proceed with surgical intervention to include a left total hip arthroplasty. DATE OF SURGERY 02/23/2017 PROCEDURE PERFORMED Left total hip arthroplasty posterior approach. POSTOP After surgery the patient was admitted to [facility] where she received appropriate medical management, pain control, DVT prophylaxis, as well as physical therapy. DISCHARGE Once being discharged from the hospital the patient is cleared to go to a custodial facility. She is in stable condition. DISCHARGE MEDICATIONS The patient may weight-bear as tolerated with posterior hip precautions. She is to receive daily dressing changes and has been instructed on appropriate wound care management. DISCHARGE MEDICATIONS Patient has been provided prescriptions for pain control as well as DVT prophylaxis medication. FOLLOWUP She has also been provided a follow-up appointment approximately 2 weeks from her date of surgery. The patient and the patient's friend have asked appropriate questions which have been answered. The patient is cleared for discharge. Dictated by: Francisco J Lowry PA-C Pattie Lantigua MD JWM/SSB /8:04 AM /8:17 AM
== END 2017-02-26 16:10 | DRG 470 ==
LOC: HSDI 05:31 → EDUNIT# 06:30 → N06A 12:37
PROVIDERS: ADMIT Orthopaedic Surgery Sports Medicine; ATTEND Orthopaedic Surgery Sports Medicine
PROC: 0SRB03A Replacement of Left Hip Joint with Ceramic Synthetic Substitute, Uncemented, Open Approach (ICD-10-PCS; principal; 2017-02-23 06:41)
DX: M16.12 Unilateral primary osteoarthritis, left hip (principal); I10 Essential (primary) hypertension; J98.11 Atelectasis; E78.5 Hyperlipidemia, unspecified; F32.9 Major depressive disorder, single episode, unspecified; Z90.13 Acquired absence of bilateral breasts and nipples; Z86.718 Personal history of other venous thrombosis and embolism; Z85.3 Personal history of malignant neoplasm of breast
CPT/HCPCS: 73502; 81001; 85027; 86850; 86900; 86901; 94150; C1776; C9290; J0131; J0690; J1100; J1580; J1650; J2270; J2370; J2405; J2710; J3010; J3370; J7030; J7040; J7050; J7120; L1830